=== PATIENT | female | born 1985 | race Caucasian/White ===

== ENCOUNTER 2017-07-03 16:41 | Inpatient (IN) | payer MEDICAID ==
[2017-07-03] MEDS ORDERED: LIDOCAINE 1% (MPF) 30 ML INJ INJ (17:00)
[2017-07-03] MEDS ORDERED: OXYTOCIN 30 UNITS/LR 500 ML IV (17:00)
[2017-07-03] MEDS ORDERED: BUTORPHANOL 2 MG INJ IV (17:00)
[2017-07-03] MEDS ORDERED: METHYLERGONOVINE 0.2 MG INJ IM (17:00)
[2017-07-03] MEDS ORDERED: IBUPROFEN 600 MG TAB PO (17:00)
[2017-07-03] MEDS ORDERED: MISOPROSTOL 200 MCG TAB PR (17:00)
[2017-07-03] MEDS ORDERED: CARBOPROST 250 MCG INJ IM (17:00)
[2017-07-03 17:49] LABS: ADD MAN DIFF? NO
[2017-07-03] MEDS: LACTATED RINGER'S 1,000 ML IV ×2 (17:52→19:29)
[2017-07-03 17:53] LABS: WHITE BLOOD COUNT 7.8 10^3/ul (4.8-10.8)
[2017-07-03 17:53] LABS: BASOPHILS % 0.4 % (0.0-2.0); EOSINOPHILS # 0.1 10^3/ul (0.0-0.5); EOSINOPHILS % 0.9 % (0.0-7.0); HEMATOCRIT 40.7 % (37.0-47.0); HEMOGLOBIN 14.3 g/dl (12.0-16.0); LYMPHOCYTES # 1.7 10^3/ul (0.8-2.9); LYMPHOCYTES % 22.3 % (15.0-51.0); MEAN CORPUSCULAR HEMOGLOBIN 31.6 pg (29.0-33.0); MEAN CORPUSCULAR HGB CONC 35.1 g/dl (32.0-37.0); MEAN CORPUSCULAR VOLUME 89.8 fl (82.0-101.0); MEAN PLATELET VOLUME 11.3 fl (7.4-10.4); MONOCYTE # 0.7 10^3/ul (0.3-0.9); MONOCYTES % 8.7 % (0.0-11.0); NEUTROPHIL # 5.2 10^3/ul (1.6-7.5); NEUTROPHILS % 66.8 % (39.0-77.0); PLATELET COUNT 204 10^3/UL (140-415); RED BLOOD COUNT 4.53 10^6/ul (4.20-5.40); RED CELL DISTRIBUTION WIDTH 13.3 % (11.5-14.5)
[2017-07-03 18:07] LABS: PROTIME 12.2 Sec (11.9-14.9)
[2017-07-03 18:08] LABS: PARTIAL THROMBOPLASTIN TIME 28.3 Sec (25.0-35.0)
[2017-07-03 18:43] LABS: HEPATITIS B SURFACE ANTIGEN NEGATIVE (NEGATIVE)
[2017-07-03] MEDS: AMPICILLIN 2 GM/NS (PMX) 100 ML IV (19:31)
[2017-07-03] MEDS ORDERED: AMPICILLIN 1 GM/NS (PMX) 50 ML IV (23:30)
[2017-07-04] MEDS: BUTORPHANOL 2 MG INJ IV (02:40)
[2017-07-04] MEDS: LACTATED RINGER'S 1,000 ML IV (02:40)
[2017-07-04] MEDS: OXYTOCIN 30 UNITS/LR 500 ML IV ×3 (06:26→10:49)
[2017-07-04] MEDS ORDERED: LACTATED RINGER'S 1,000 ML IV* (06:49)
[2017-07-04] MEDS ORDERED: OXYTOCIN 30 UNITS/LR 500 ML IV (07:00)
[2017-07-04] MEDS ORDERED: METHYLERGONOVINE 0.2 MG INJ IM (07:00)
[2017-07-04] MEDS ORDERED: HYDROCODONE/APAP (5/325) TAB PO ×2 (07:00)
[2017-07-04] MEDS ORDERED: WITCH HAZEL/GLYCERIN PAD PR (07:00)
[2017-07-04] MEDS ORDERED: CARBOPROST 250 MCG INJ IM (07:00)
[2017-07-04] MEDS ORDERED: DIBUCAINE 1% 30 GM OINT PR (07:00)
[2017-07-04] MEDS ORDERED: BENZOCAINE 20% 56 ML SPRAY TOP (07:00)
[2017-07-04] MEDS ORDERED: MISOPROSTOL 200 MCG TAB PR (07:00)
[2017-07-04] MEDS: LANOLIN 7 GM TUBE TOP (10:15)
[2017-07-04] MEDS: IBUPROFEN 600 MG TAB PO ×2 (11:52→17:31)
[2017-07-04 15:01] LABS: RAPID PLASMA REAGIN NONREACTIVE (NR)
[2017-07-04] MEDS: GUAIFENESIN/DM 5ML CUP PO (15:45)
[2017-07-05] MEDS: IBUPROFEN 600 MG TAB PO ×4 (00:23→17:20)
[2017-07-05 08:06] LABS: ADD MAN DIFF? NO
[2017-07-05 08:10] LABS: BASOPHILS % 0.5 % (0.0-2.0); EOSINOPHILS # 0.1 10^3/ul (0.0-0.5); EOSINOPHILS % 0.8 % (0.0-7.0); HEMATOCRIT 35.4 % (37.0-47.0); HEMOGLOBIN 12.5 g/dl (12.0-16.0); LYMPHOCYTES # 2.4 10^3/ul (0.8-2.9); LYMPHOCYTES % 26.9 % (15.0-51.0); MEAN CORPUSCULAR HEMOGLOBIN 31.9 pg (29.0-33.0); MEAN CORPUSCULAR HGB CONC 35.3 g/dl (32.0-37.0); MEAN CORPUSCULAR VOLUME 90.3 fl (82.0-101.0); MEAN PLATELET VOLUME 11.3 fl (7.4-10.4); MONOCYTE # 0.6 10^3/ul (0.3-0.9); MONOCYTES % 6.8 % (0.0-11.0); NEUTROPHIL # 5.7 10^3/ul (1.6-7.5); NEUTROPHILS % 64.2 % (39.0-77.0); PLATELET COUNT 189 10^3/UL (140-415); RED BLOOD COUNT 3.92 10^6/ul (4.20-5.40); RED CELL DISTRIBUTION WIDTH 13.6 % (11.5-14.5)
[2017-07-05 08:10] LABS: WHITE BLOOD COUNT 8.8 10^3/ul (4.8-10.8)
[2017-07-06] MEDS: IBUPROFEN 600 MG TAB PO ×3 (06:00→12:00)
[2017-07-06] MEDS: VARICELLA VACCINE LIVE/PF 1,350 UNIT/0.5 ML ML SC* (09:00)
[2017-07-06] MEDS: MEASLES,MUMPS,RUBELLA VACCINE INJ SC* (09:00)
[2017-07-06] MEDS: DIPHTH/TET/ACEL PERTUSS (ADULT) 0.5 ML VIAL IM* (09:00)
== END 2017-07-06 14:05 | disposition home or self-care (01) | DRG 775 ==
LOC: L-D 16:41 → PP1 07-04 08:50
PROVIDERS: Obstetrics & Gynecology
PROC: 4A1HXCZ Monitoring of Products of Conception, Cardiac Rate, External Approach (ICD-10-PCS; 2017-07-03 16:00)
DX: O48.0 Post-term pregnancy (principal); Z37.0 Single live birth; Z3A.40 40 weeks gestation of pregnancy
CPT/HCPCS: 76815; 76818; 85025; 85610; 85730; 86592; 86900; 86901; 87340